=== PATIENT | male | born 1945 | race Caucasian/White ===

== ENCOUNTER 2018-01-30 10:38 | Outpatient (RCR) | payer MEDICARE, SELFPAY ==
[2018-01-30] MEDS: Heparin 500 UNITS/5 ML SYRINGE (10:35)
[2018-01-30] MEDS: Normal Saline Flush 10 ML SYR IVP (10:35)
[2018-01-30 11:15] LABS: TSH 2.81 uIU/mL (0.358-3.74)
== END 2018-01-31 ==
LOC: INF 10:38
PROVIDERS: PCP Family Medicine; Visit Provider Nurse Practitioner Adult Health
DX: E03.9 Hypothyroidism, unspecified (principal); C02.9 Malignant neoplasm of tongue, unspecified; Z93.1 Gastrostomy status; Z95.828 Presence of other vascular implants and grafts; J90 Pleural effusion, not elsewhere classified; Z45.2 Encounter for adjustment and management of vascular access device
CPT/HCPCS: 36591; 84443

== ENCOUNTER 2018-03-07 15:09 | Outpatient (RCR) | payer MEDICARE, SELFPAY ==
[2018-03-07] MEDS: Heparin 500 UNITS/5 ML SYRINGE IV (15:15)
[2018-03-07] MEDS: Normal Saline Flush 10 ML SYR IVP (15:15)
== END 2018-04-02 23:59 | disposition home or self-care (01) ==
LOC: INF 15:09
PROVIDERS: PCP Family Medicine; Visit Provider Nurse Practitioner Adult Health
DX: C02.9 Malignant neoplasm of tongue, unspecified (principal); Z93.1 Gastrostomy status; E03.9 Hypothyroidism, unspecified; Z95.828 Presence of other vascular implants and grafts; J90 Pleural effusion, not elsewhere classified
CPT/HCPCS: 96523

== ENCOUNTER 2018-05-22 02:36 | Outpatient (RCR) | payer MEDICARE, SELFPAY | END 2018-06-02 23:59 | disposition home or self-care (01) | LOC: INF 02:36 | PROVIDERS: PCP Family Medicine; Visit Provider Nurse Practitioner Adult Health | DX: R69 Illness, unspecified (principal) ==

== ENCOUNTER 2023-05-20 11:53 | Outpatient (CLI) | payer MEDICARE, SELFPAY ==
[2023-05-20 08:52] LABS: Abs Immature Grans 0.04 10^3/uL (0.0-0.06); Absolute Basophil Count 0.04 10^3/uL (0.0-0.2); Absolute Eosinophil Count 0.01 10^3/uL (0.0-0.7); Absolute Lymphocyte Count 0.55 10^3/uL (1.2-3.4); Absolute Monocyte Count 1.04 10^3/uL (0.1-0.8); Absolute Neutrophil Count 8.35 10^3/uL (1.2-6.7); Basophils % 0.4; Eosinophils % 0.1; HCT 39.2 % (40.0-50.0); HGB 12.7 g/dL (13.5-17.5); Immature Grans % 0.4; Lymphocytes % 5.5; MCH 33.2 pg (27.0-33.0); MCHC 32.4 % (32.0-36.0); MCV 103 fL (80-95); MPV 9.9 fL (8.0-11.0); Monocytes % 10.4; Neutrophils % 83.2; Platelet Count 297 10^3/uL (130-400); RBC 3.82 10^6/uL (4.36-5.78); RDW 12.4 % (11.8-14.1); RDW-SD 46.3 fL; WBC 10.03 10^3/uL (4.4-10.8)
[2023-05-20 09:09] LABS: ALT 30 U/L (16-63); AST 30 U/L (15-37); Albumin 3.3 g/dL (3.4-5.0); Alkaline Phosphatase 94 U/L (46-116); Anion Gap 8.2 mmol/L (3-11); BUN 18 mg/dL (7-18); Bilirubin, Total 0.7 mg/dL (0.2-1.0); CO2 32.8 mmol/L (21.0-32.0); CREATININE 0.9 mg/dL (0.70-1.30); Calcium 10.5 mg/dL (8.5-10.1); Chloride 101 mmol/L (98-107); Estimated GFR 87.42 (mL/min/1.73m2); Glucose 114 mg/dL (74-106); Magnesium 2.1 mg/dL (1.8-2.4); Potassium 3.8 mmol/L (3.5-5.1); Sodium 142 mmol/L (136-145); Total Protein 8.3 g/dL (6.4-8.2)
[2023-05-20 13:14] LABS: FREE T4 1.17 ng/dL (0.76-1.46); TSH 30.89 uIU/mL (0.36-3.74)
== END 2023-05-20 11:54 | disposition home or self-care (01) ==
PROVIDERS: PCP Family Medicine; Visit Provider Internal Medicine Medical Oncology
DX: C02.9 Malignant neoplasm of tongue, unspecified (principal)
CPT/HCPCS: 36415; 80053; 83735; 84439; 84443; 85025

== ENCOUNTER 2023-05-20 13:10 | Emergency (ER) | payer MEDICARE, SELFPAY ==
[2023-05-20] VITALS (32 sets, daily range): BP systolic 123–157; BP diastolic 47–107; PULSE 93–139; RESP 12–33; TEMP 37.1; O2SAT 83–100
--- NOTE | 2023-05-20 13:15 | DI.CT_ITS ---
Exam(s) CT NECK W EXAM: CT NECK W INDICATION: difficulty breathing, tongue cancer. COMPARISON: No exams were available for comparison TECHNIQUE: FINDINGS: VISUALIZED PARANASAL SINUSES: Unremarkable. NASOPHARYNX: Unremarkable ORODENTAL: There appears to have been partial resection of the tongue. OROPHARYNX: There is an enhancing area in the posterior aspect of the tongue which measures approxima tely 2 cm x 1.5 cm. . There is abnormal density and thickening in the tonsillar regions right-side measuring approximate ly 1.3 x 1.3 cm, possibly an abscess. HYPOPHARYNX: The epiglottis is thickened, possibly related to radiation treatment. Below this level the aryepiglottic folds and subglottic region appear unremarkable. VOCAL CORDS: Unremarkable. No masses evident. Subglottic airway appears unremarkable. THYROID GLAND: Miniscule. No masses in this region. No adenopathy. SALIVARY GLANDS: Parotid glands appear unremarkable. Submandibular glands are tiny or surgically abs ent. LYMPH NODES: There is no obvious adenopathy evident in the neck and supraclavicular regions. OTHER: VISUALIZED LUNG APICES: Nodular infiltrates evident. IMPRESSION: 1. Postsurgical and probable post radiation changes. 2. There appears to be a right peritonsillar abscess. 3. Enhancing region in the posterior aspect of the tongue may be the primary tumor. Other findings as above. First read by [facility]. RADIATION DOSE DELIVERED: Total DLP DATA REPOSITORY: All CT scans at this facility are submitted to the National Radiology Data Registry (NRDR) Dose Index Registry (DIR) with the [employer] (A[employer]). RADIATION OPTIMIZATION: All CT scans at this facility use at least one of these dose optimization te chniques: automated exposure control; mA and/or kV adjustment per patient size (includes targeted exa ms where dose is matched to clinical indication); or iterative reconstruction.
--- NOTE | 2023-05-20 13:15 | DI.CT_ITS ---
Exam(s) CT HEAD WO EXAM: CT HEAD WO CLINICAL HISTORY: altered mentation. TECHNIQUE: Imaging Protocol: Axial computed tomography images with coronal and sagittal reformatted images were created and reviewed COMPARISON: CT CT NECK W from 05/20/2023 FINDINGS: There are no skull fractures. There is no fluid in the visualized paranasal sinuses. There is no evidence of intracranial hemorrhage, mass effect, or shift of midline structures. There are no extra-axial fluid collections. The ventricles are not enlarged or shifted and there is no blo od within the ventricular system nor within the basal cisterns. There is mild bilateral periventricular hypodensity consistent with chronic small vessel disease. IMPRESSION: No acute intracranial findings on this noninfused CT scan of the brain. Chronic small-vessel white matter ischemic changes. Involutional change consistent with patient's ev ident. RADIATION DOSE DELIVERED: Total DLP DATA REPOSITORY: All CT scans at this facility are submitted to the National Radiology Data Registry (NRDR) Dose Index Registry (DIR) with the [employer] (ACR). RADIATION OPTIMIZATION: All CT scans at this facility use at least one of these dose optimization te chniques: automated exposure control; mA and/or kV adjustment per patient size (includes targeted exa ms where dose is matched to clinical indication); or iterative reconstruction.
[2023-05-20] MEDS: Dexamethasone 10 MG/ML VIAL (13:25)
[2023-05-20 14:09] LABS: Abs Immature Grans 0.03 10^3/uL (0.0-0.06); Absolute Basophil Count 0.03 10^3/uL (0.0-0.2); Absolute Lymphocyte Count 0.74 10^3/uL (1.2-3.4); Absolute Monocyte Count 1.01 10^3/uL (0.1-0.8); Absolute Neutrophil Count 8.22 10^3/uL (1.2-6.7); Basophils % 0.3; HCT 43.5 % (40.0-50.0); HGB 13.9 g/dL (13.5-17.5); Immature Grans % 0.3; Lymphocytes % 7.4; MCH 32.9 pg (27.0-33.0); MCV 103 fL (80-95); MPV 10.3 fL (8.0-11.0); Monocytes % 10.1; Neutrophils % 81.9; Platelet Count 322 10^3/uL (130-400); RBC 4.22 10^6/uL (4.36-5.78); RDW 12.3 % (11.8-14.1); RDW-SD 46.5 fL; WBC 10.03 10^3/uL (4.4-10.8)
[2023-05-20 14:25] LABS: ALT 31 U/L (16-63); AST 33 U/L (15-37); Albumin 3.5 g/dL (3.4-5.0); Alkaline Phosphatase 104 U/L (46-116); Anion Gap 7.3 mmol/L (3-11); BUN 17 mg/dL (7-18); Bilirubin, Total 0.6 mg/dL (0.2-1.0); CO2 32.7 mmol/L (21.0-32.0); CREATININE 0.9 mg/dL (0.70-1.30); Calcium 10.4 mg/dL (8.5-10.1); Chloride 102 mmol/L (98-107); Estimated GFR 87.42 (mL/min/1.73m2); Glucose 105 mg/dL (74-106); Magnesium 2.2 mg/dL (1.8-2.4); Potassium 3.7 mmol/L (3.5-5.1); Sodium 142 mmol/L (136-145); Total Protein 9.1 g/dL (6.4-8.2)
--- NOTE | 2023-05-20 15:13 | ED.GENADUL_ITS ---
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 Patient is tachycardic, tachypneic, hypoxic on room air. Supplemental nasal cannula oxygen applied and saturations improved. He remains altered. I will consult respiratory therapy to suction. Decadron 10 mg IV administered to reduce oral swelling. Plan to obtain CT of the head and neck to assess for obstructive process. --CT scan is currently overheating and nonfunctioning. 1608 --CT scan is still malfunctioning. I called [facility] transfer center request emergent transfer and awaiting callback. 1654 -- [facility] called back and noted they could not accept the patient in transfer because of capacity. I called [facility] to request transfer - awaiting callback. CT now functioning and was performed. 1720 --I spoke with Dr. Small, ENT, and ED physician as well as Dr. Tapia, transfer manager distribution center, discussed ED presentation and course, they will accept the patient in transfer. Lab Data Lab results reviewed: Yes I reviewed the patient's lab results. Labs: Laboratory Tests Range/Units 05/20/23 05/20/23 13:28 13:43 WBC (4.4-10.8) 10^3/uL 10.03 RBC (4.36-5.78) 10^6/uL 4.22 L Hgb (13.5-17.5) g/dL 13.9 Hct (40.0-50.0) % 43.5 MCV (80-95) fL 103 H MCH (27.0-33.0) pg 32.9 MCHC (32.0-36.0) % 32.0 RDW (11.8-14.1) % 12.3 Plt Count (130-400) 10^3/uL 322 MPV (8.0-11.0) fL 10.3 Immature Gran % 0.3 Neutrophils % 81.9 Band Neutrophils % STEEL SHOT HEADER OPERATOR Lymphocytes % 7.4 Atypical Lymphs % STEEL SHOT HEADER OPERATOR Monocytes % 10.1 Eosinophils % 0.0 Basophils % 0.3 Metamyelocytes % STEEL SHOT HEADER OPERATOR Myelocytes % STEEL SHOT HEADER OPERATOR Promyelocytes % STEEL SHOT HEADER OPERATOR Other Cells % STEEL SHOT HEADER OPERATOR Nucleated RBC % (0.0-0.3) % 0.0 Absolute Neutrophils (1.2-6.7) 10^3/uL 8.22 H Absolute Lymphocytes (1.2-3.4) 10^3/uL 0.74 L Absolute Monocytes (0.1-0.8) 10^3/uL 1.01 H Absolute Eosinophils (0.0-0.7) 10^3/uL 0.00 Absolute Basophils (0.0-0.2) 10^3/uL 0.03 RBC Morphology STEEL SHOT HEADER OPERATOR Polychromasia STEEL SHOT HEADER OPERATOR Hypochromasia STEEL SHOT HEADER OPERATOR Poikilocytosis STEEL SHOT HEADER OPERATOR Basophilic Stippling STEEL SHOT HEADER OPERATOR Anisocytosis STEEL SHOT HEADER OPERATOR Microcytosis STEEL SHOT HEADER OPERATOR Macrocytosis STEEL SHOT HEADER OPERATOR Spherocytes STEEL SHOT HEADER OPERATOR Tear Drop Cells STEEL SHOT HEADER OPERATOR Ovalocytes STEEL SHOT HEADER OPERATOR Stomatocytes STEEL SHOT HEADER OPERATOR [place] Bodies STEEL SHOT HEADER OPERATOR [place] Cells/Echinocytes STEEL SHOT HEADER OPERATOR Acanthocytes (Spur) STEEL SHOT HEADER OPERATOR Schistocytes STEEL SHOT HEADER OPERATOR Sodium Cancelled 142 Potassium Cancelled 3.7 Chloride Cancelled 102 Carbon Dioxide Cancelled 32.7 H Anion Gap Cancelled 7.3 BUN Cancelled 17 Creatinine Cancelled 0.9 Est GFR (CKD-EPI 2020) Cancelled 87.42 Glucose Cancelled 105 Calcium Cancelled 10.4 H Magnesium Cancelled 2.2 Total Bilirubin Cancelled 0.6 AST Cancelled 33 ALT Cancelled 31 Alkaline Phosphatase Cancelled 104 Total Protein Cancelled 9.1 H Albumin Cancelled 3.5 HPI General Mode of arrival: EMS . Date/Time Provider Initiated Documentation: 05/20/23 13:28 . Limitations to Documentation: altered mental status . Information obtained by: patient and family . HPI Narrative: 78-year-old male with history of tongue cancer, has not yet started palliative treatment, was at oncology treatment center today found to be hypoxic and sent here for further treatment. Family notes that over the past 1 week he has had increasing shortness of breath. Oxygen saturation dropped down into the 60s today on room air. Patient arrives by EMS on 4 L nasal cannula oxygen. General Stated Complaint: RespSymp ANDI: 2 Review of Systems All systems reviewed & are unremarkable except as noted in HPI and below Constitutional Constitutional: Denies fever(s) ENT Ears, Nose, Mouth, and Throat: Reports as per HPI PFSH All Active Problems (Updated 05/20/23 @ 17:25 by James Trujillo MD) Hypoxia (Acute) Pharyngeal cancer (Acute) Partial obstruction of airway (Acute) Social History Smoking/Tobacco Use Status: Former Tobacco Use Smoking risk assessment performed?: Yes Alcohol Intake: current Drug use: Never Substance use type: does not use Housing: house Do you feel safe at home: Yes Do you feel safe in your relationship?: Yes Additional Social history: unable to assess alone Exam Const General: cooperative HENMT Head: normocephalic Mouth: moist mucous membranes, malodorous breath, muffled voice, no trismus and other (tongue lesion with purulent discharge in OP) Other: not tolerating secretions, difficulty swallowing Eyes Conjunctivae: normal conjunctivae Sclera: normal sclerae Neck Neck: trachea midline and supple Resp Auscultation: clear to auscultation bilaterally, no rales, no rhonchi and no wheezes Cardio Rate: regular rate and not tachycardic Rhythm: regular rhythm Neuro General: patient alert, patient awake, oriented Patient Orientation: Person and Confused and tone normal Course Vital Signs Vital signs: Vital Signs Temperature 37.1 C 05/20/23 12:43 Pulse 139 H 05/20/23 12:43 Respiratory Rate 22 05/20/23 12:43 Blood Pressure 150/84 H 05/20/23 12:43 Pulse Oximetry 99 05/20/23 12:43 Temperature 37.1 C 05/20/23 12:43 Pulse 139 H 05/20/23 12:43 Respiratory Rate 22 05/20/23 12:43 Respiratory Effort Short of Breath, Accessory Muscle Use 05/20/23 13:19 Blood Pressure 150/84 H 05/20/23 12:43 Blood Pressure Position Sitting 05/20/23 12:43 Pulse Oximetry 99 05/20/23 12:43 Oxygen Delivery Method Nasal Cannula 05/20/23 12:43 Lab/Test Results Lab/Test Results: Laboratory Tests Range/Units 05/20/23 05/20/23 13:28 13:43 WBC (4.4-10.8) 10^3/uL 10.03 RBC (4.36-5.78) 10^6/uL 4.22 L Hgb (13.5-17.5) g/dL 13.9 Hct (40.0-50.0) % 43.5 MCV (80-95) fL 103 H MCH (27.0-33.0) pg 32.9 MCHC (32.0-36.0) % 32.0 RDW (11.8-14.1) % 12.3 Plt Count (130-400) 10^3/uL 322 MPV (8.0-11.0) fL 10.3 Immature Gran % 0.3 Neutrophils % 81.9 Band Neutrophils % STEEL SHOT HEADER OPERATOR Lymphocytes % 7.4 Atypical Lymphs % STEEL SHOT HEADER OPERATOR Monocytes % 10.1 Eosinophils % 0.0 Basophils % 0.3 Metamyelocytes % STEEL SHOT HEADER OPERATOR Myelocytes % STEEL SHOT HEADER OPERATOR Promyelocytes % STEEL SHOT HEADER OPERATOR Other Cells % STEEL SHOT HEADER OPERATOR Nucleated RBC % (0.0-0.3) % 0.0 Absolute Neutrophils (1.2-6.7) 10^3/uL 8.22 H Absolute Lymphocytes (1.2-3.4) 10^3/uL 0.74 L Absolute Monocytes (0.1-0.8) 10^3/uL 1.01 H Absolute Eosinophils (0.0-0.7) 10^3/uL 0.00 Absolute Basophils (0.0-0.2) 10^3/uL 0.03 RBC Morphology STEEL SHOT HEADER OPERATOR Polychromasia STEEL SHOT HEADER OPERATOR Hypochromasia STEEL SHOT HEADER OPERATOR Poikilocytosis STEEL SHOT HEADER OPERATOR Basophilic Stippling STEEL SHOT HEADER OPERATOR Anisocytosis STEEL SHOT HEADER OPERATOR Microcytosis STEEL SHOT HEADER OPERATOR Macrocytosis STEEL SHOT HEADER OPERATOR Spherocytes STEEL SHOT HEADER OPERATOR Tear Drop Cells STEEL SHOT HEADER OPERATOR Ovalocytes STEEL SHOT HEADER OPERATOR Stomatocytes STEEL SHOT HEADER OPERATOR [place] Bodies STEEL SHOT HEADER OPERATOR [place] Cells/Echinocytes STEEL SHOT HEADER OPERATOR Acanthocytes (Spur) STEEL SHOT HEADER OPERATOR Schistocytes STEEL SHOT HEADER OPERATOR Sodium Cancelled 142 Potassium Cancelled 3.7 Chloride Cancelled 102 Carbon Dioxide Cancelled 32.7 H Anion Gap Cancelled 7.3 BUN Cancelled 17 Creatinine Cancelled 0.9 Est GFR (CKD-EPI 2020) Cancelled 87.42 Glucose Cancelled 105 Calcium Cancelled 10.4 H Magnesium Cancelled 2.2 Total Bilirubin Cancelled 0.6 AST Cancelled 33 ALT Cancelled 31 Alkaline Phosphatase Cancelled 104 Total Protein Cancelled 9.1 H Albumin Cancelled 3.5
[2023-05-20] MEDS: Normal Saline - Diluent 50 ML VIAL IJ (16:47)
[2023-05-20] MEDS: Omnipaque 350 MG/ML 100 ML BTL IJ (16:48)
--- NOTE | 2023-05-20 18:31 | DI.VRAD_ITS ---
Addendum created by Gordon Cummings MD on 05/20/2023 6:32:51 PM EST: THIS REPORT CONTAINS FINDINGS THAT MAY BE CRITICAL TO PATIENT CARE. The findings were verbally communicated via telephone conference at 6:20 PM EST on 05/20/2023 with James Trujillo. The findings were acknowledged and understood. Initial report created on 05/20/2023 6:30:55 PM EST: PROCEDURE INFORMATION: Exam: CT Neck With Contrast Exam date and time: 05/20/2023 4:39 PM Age: 78 years old Clinical indication: Other: Difficulty breathing, tongue cancer TECHNIQUE: Imaging protocol: Computed tomography of the neck with contrast. Contrast material: 350; Contrast volume: 100 ml; Contrast route: INTRAVENOUS (IV); COMPARISON: CT HEAD WO 05/20/2023 4:39 PM FINDINGS: Oral cavity: The primary tumor may be in the posterior aspect of the left lung. This irregular enhancing area measures up to 1.8 cm. Pharynx: Inseparable from the right tonsil in posterior to it is a abscess like structure measuring 3.3 cm in length and up to 1.3 cm in diameter. No significant tonsillar enlargement. Larynx: Unremarkable. Epiglottis is normal. Small amount of mucus in the left vallecula. Prevertebral and retropharyngeal spaces: Unremarkable. Salivary glands: Normal. Glands are normal in size. Thyroid: Normal. No enlarged or calcified nodules. Lymph nodes: Unremarkable. No lymphadenopathy. Trachea: Visualized trachea is unremarkable. Lungs: Unremarkable as visualized. Bones/joints: Unremarkable. No acute fracture. Soft tissues: Unremarkable. No significant soft tissue swelling. IMPRESSION: 1. Right peritonsillar abscess. 2. Possible primary tumor in the posterior left portion of the tongue measuring 1.8 cm in size. 3. MRI examination would be of further assistance. Dictated and Authenticated by: Gordon Cummings MD. Ordering:MILAD Ramirez MD
[2023-05-20] MEDS: PIPERACILLIN/TAZO 4.5 GM in Normal Saline 100 ML IVPB (18:39)
--- NOTE | 2023-05-21 09:07 | NUR.NOTE ---
Accessed pt chart for Dr. Trujillo for follow up on the outcome of this patient. Nursing Note:
== END 2023-05-20 19:38 | disposition short-term general hospital (02) ==
PROVIDERS: Emergency Provider Student in an Organized Health Care Education/Training Program; PCP Family Medicine
DX: J98.8 Other specified respiratory disorders (principal); C14.0 Malignant neoplasm of pharynx, unspecified; R09.02 Hypoxemia; R41.82 Altered mental status, unspecified
CPT/HCPCS: 70491; 80053; 96365; 99285; 70450; 83735; 85025; J1100; J2543; J3490